=== PATIENT | female | born 1955 | race African-American/Black ===

== ENCOUNTER 2019-03-16 20:20 | Emergency (ER) | payer MEDICARE, MEDICAID ==
[~2019-03-16] VITALS: Ht 170.2 cm; Wt 82.0 kg
[2019-03-16] MEDS ORDERED: CEPHALEXIN 250MG CAPSULE PO ONE (22:45)
[2019-03-16 23:15] VITALS: BP 155/92
== END 2019-03-16 23:21 | disposition home or self-care (01) ==
LOC: ER 20:20
DX: S50.862A Insect bite (nonvenomous) of left forearm, initial encounter (principal); S90.561A Insect bite (nonvenomous), right ankle, initial encounter; L03.114 Cellulitis of left upper limb; L02.414 Cutaneous abscess of left upper limb; Z88.5 Allergy status to narcotic agent; Z87.891 Personal history of nicotine dependence; Z86.19 Personal history of other infectious and parasitic diseases; I10 Essential (primary) hypertension; W57.XXXA Bitten or stung by nonvenomous insect and other nonvenomous arthropods, initial encounter; Y93.89 Activity, other specified; Y92.89 Other specified places as the place of occurrence of the external cause
CPT/HCPCS: 99283